=== PATIENT | male | born 1960 | race Caucasian/White ===

== ENCOUNTER 2023-09-05 22:40 | Observation (INO) | payer BC ==
[2023-09-05] MEDS ORDERED: LORazepam 2 MG/ML INJ IV STA (22:55)
[2023-09-05] MEDS ORDERED: SODIUM CHLORIDE 0.9% 1,000 ML IV STA (22:55)
--- NOTE | 2023-09-05 23:05 | ED ---
Seizure HPI - General Chief Complaint: Seizure Stated Complaint: Seizure Time Seen by Provider: 09/05/23 22:43 Source: patient, EMS, RN notes reviewed, old records reviewed Mode of arrival: EMS Limitations: no limitations - History of Present Illness Initial Comments: This is a 62-year-old male to the emergency department for evaluation. Patient's today for evaluation of seizure seizure activity at [facility] he now presents the emergency department for evaluation. Patient is a patient at [facility] for alcohol withdrawal MD Complaint: seizure, possible seizure, shaking -: hour(s) Description of Episode: loss of consciousness, tonic-clonic movement, post-event confusion -: second(s) Witnessed: yes - by bystander Trauma: Yes Seizure History: history of withdrawal seizures (6 is patient's first seizure after alcohol use) Place: home Possible Precipitating Event: alcohol withdrawal Associated Symptoms: denies other symptoms Treatments Prior to Arrival: none - Related Data Home Medications Medication Instructions Recorded Confirmed Acetaminophen Tab [Tylenol] 650 mg PO Q4H PRN 09/06/23 09/06/23 Calcium/Mag/Zinc/D3 1 tab PO TID PRN 09/06/23 09/06/23 Chlorpheniramine Maleate 4 mg PO Q4H PRN 09/06/23 09/06/23 [Chlor-Trimeton] Ibuprofen [Motrin Ib] 600 mg PO Q6H PRN 09/06/23 09/06/23 Loperamide HCl [Imodium A-D] 4 mg PO QID PRN 09/06/23 09/06/23 Nicotine 21Mg/24Hr Patch [Habitrol] 1 patch TRANSDERM DAILY 09/06/23 09/06/23 Thiamine [Vitamin B-1] 100 mg PO DAILY 09/06/23 09/06/23 carvediloL [Coreg] 12.5 mg PO BID 09/06/23 09/06/23 ondansetron HCL [Zofran] 8 mg PO Q6H PRN 09/06/23 09/06/23 Allergies Allergy/AdvReac Type Severity Reaction Status Date / Time No Known Allergies Allergy Verified 09/06/23 07:29 Review of Systems ROS Statement: Those systems with pertinent positive or pertinent negative responses have been documented in the HPI. ROS Other: All systems not noted in ROS Statement are negative. Past Medical History Past Medical History: Hypertension Past Surgical History: No Surgical Hx Reported Smoking Status: Current every day smoker Past Alcohol Use History: Abuse Past Drug Use History: Marijuana General Exam Limitations: no limitations General appearance: alert, in no apparent distress Head exam: Present: atraumatic, normocephalic, normal inspection Eye exam: Present: normal appearance, PERRL, EOMI. Absent: scleral icterus, conjunctival injection, periorbital swelling ENT exam: Present: normal exam, mucous membranes moist Neck exam: Present: normal inspection. Absent: tenderness, meningismus, lymphadenopathy Respiratory exam: Present: normal lung sounds bilaterally. Absent: respiratory distress, wheezes, rales, rhonchi, stridor Cardiovascular Exam: Present: regular rate, normal rhythm, normal heart sounds. Absent: systolic murmur, diastolic murmur, rubs, gallop, clicks GI/Abdominal exam: Present: soft, normal bowel sounds. Absent: distended, tenderness, guarding, rebound, rigid Extremities exam: Present: normal inspection, full ROM, normal capillary refill. Absent: tenderness, pedal edema, joint swelling, calf tenderness Back exam: Present: normal inspection Neurological exam: Present: alert, oriented X3, CN II-XII intact Psychiatric exam: Present: normal affect, normal mood Skin exam: Present: warm, dry, intact, normal color. Absent: rash Course Vital Signs 09/05/23 09/06/23 22:43 01:36 Temperature 98.8 F Pulse Rate 83 78 Respiratory 16 16 Rate Blood Pressure 136/82 121/81 O2 Sat by Pulse 98 95 Oximetry - Reevaluation(s) Reevaluation #1: 09/05/23 23:04 Medical records reviewed Reevaluation #2: No recurrent seizure-like activity here in the ER Reevaluation #3: Patient informed results questions answered Reevaluation #4: 09/05/23 23:04 Was pt. sent in by a medical professional or institution (, PA, ADOLESCENT SPECIALIST, urgent care, hospital, or detention...) When possible be specific @ -no Did you speak to anyone other than the patient for history (EMS, parent, family, police, friend...)? What history was obtained from this source @ -no Did you review nursing and triage notes (agree or disagree)? Why? @ -agree Are old charts reviewed (outside hosp., previous admission, EMS record, old EKG, old radiological studies, urgent care reports/EKG's, detention records)? Report findings @ -yes Differential Diagnosis (chest pain, altered mental status, abdominal pain women, abdominal pain men, vaginal bleeding, weakness, fever, dyspnea, syncope, headache, dizziness, GI bleed, back pain, seizure, CVA, palpatations, mental health, musculoskeletal)? @ -prior EKG interpreted by me (3pts min.). @ -yes X-rays interpreted by me (1pt min.). @ -no CT interpreted by me (1pt min.). @ -yes U/S interpreted by me (1pt. min.). @ -no What testing was considered but not performed or refused? (CT, X-rays, U/S, labs)? Why? @ -none What meds were considered but not given or refused? Why? @ -none Did you discuss the management of the patient with other professionals (professionals i.e. , PA, ADOLESCENT SPECIALIST, lab, RT, psych nurse, social media content manager, cook helper vegetable, teacher, juvenile officer, outsole caser)? Give summary @ -no Was smoking cessation discussed for >3mins.? @ -no Was critical care preformed (if so, how long)? @ -no Were there social determinants of health that impacted care today? How? (Homelessness, low income, unemployed, alcoholism, drug addiction, transportation, low edu. Level, literacy, decrease access to med. care, assisted, rehab)? @ -none Was there de-escalation of care discussed even if they declined (Discuss DNR or withdrawal of care, Hospice)? DNR status @ -no What co-morbidities impacted this encounter? (DM, HTN, Smoking, COPD, CAD, Cancer, CVA, ARF, Chemo, Hep., AIDS, mental health diagnosis, sleep apnea, morbid obesity)? @ -none Was patient admitted / discharged? Hospital course, mention meds given and route, prescriptions, significant lab abnormalities, going to OR and other pertinent info. @ - 62 male to the emergency with for evaluation today. Patient presents for alcohol withdrawal seizure alcohol withdrawal related seizure here in the emergency room. Patient symptoms has no recurrent seizure here in the ER will be admitted for seizure and persistent possibility of recurrent seizure Admit Undiagnosed new problem with uncertain prognosis? @ -no Drug Therapy requiring intensive monitoring for toxicity (Heparin, Nitro, Insulin, Cardizem)? @ -no Were any procedures done? @ -no Diagnosis/symptom? @ -Seizure, alcohol withdrawal, DTs Acute, or Chronic, or Acute on Chronic? @ -Acute Uncomplicated (without systemic symptoms) or Complicated (systemic symptoms)? @ -Complicated Side effects of treatment? @ -no Exacerbation, Progression, or Severe Exacerbation? @ -exacerbation Poses a threat to life or bodily function? How? (Chest pain, USA, ID, pneumonia, PE, COPD, DKA, ARF, appy, cholecystitis, CVA, Diverticulitis, Homicidal, Suicidal, threat to staff... and all critical care pts) @ -yes with severe alcohol withdrawal and status epilepticus Reevaluation #5: 09/05/23 23:04 Differential Seizure: Recurrent seizure disorder, febrile seizure, alcohol withdrawal, stimulants, meningitis, encephalitis, intercranial hemorrhage, intracranial tumor, stroke, eclampsia, thyrotoxicosis, hypocalcemia, hyponatremia, hypernatremia, hypomagnesemia, psychogenic, this is not meant to be an all-inclusive list. - Consultations Consultation #1: Spoke with admitting physicians who agree to admit this patient Medical Decision Making - Medical Decision Making 62 male to the emergency with for evaluation today. Patient presents for alcohol withdrawal seizure alcohol withdrawal related seizure here in the emergency room. Patient symptoms has no recurrent seizure here in the ER will be admitted for seizure and persistent possibility of recurrent seizure - Lab Data Result diagrams: 09/07/23 05:45 09/07/23 05:45 Lab Results 09/05/23 09/05/23 09/05/23 Range/Units 23:11 23:11 23:11 WBC 6.4 (3.8-10.6) k/uL RBC 3.62 L (4.30-5.90) m/uL Hgb 11.7 L (13.0-17.5) gm/dL Hct 34.7 L (39.0-53.0) % MCV 95.7 (80.0-100.0) fL MCH 32.3 (25.0-35.0) pg MCHC 33.7 (31.0-37.0) g/dL RDW 15.1 (11.5-15.5) % Plt Count 132 L (150-450) k/uL MPV 8.5 Neutrophils % (Manual) 70 % Lymphocytes % (Manual) 14 % Monocytes % (Manual) 15 % Eosinophils % (Manual) 1 % Neutrophils # (Manual) 4.48 (1.3-7.7) k/uL Lymphocytes # (Manual) 0.90 L (1.0-4.8) k/uL Monocytes # (Manual) 0.96 (0-1.0) k/uL Eosinophils # (Manual) 0.06 (0-0.7) k/uL Nucleated RBCs 0 (0-0) /100 WBC Manual Slide Review Performed RBC Morphology Normal Sodium 136 L (137-145) mmol/L Potassium 3.9 (3.5-5.1) mmol/L Chloride 100 (98-107) mmol/L Carbon Dioxide 28 (22-30) mmol/L Anion Gap 8 mmol/L BUN 21 H (9-20) mg/dL Creatinine 0.63 L (0.66-1.25) mg/dL Est GFR (CKD-EPI)AfAm >90 (>60 ml/min/1.73 sqM) Est GFR (CKD-EPI)NonAf >90 (>60 ml/min/1.73 sqM) Glucose 135 H (74-99) mg/dL Calcium 9.2 (8.4-10.2) mg/dL Phosphorus 2.6 (2.5-4.5) mg/dL Magnesium 1.6 (1.6-2.3) mg/dL Total Bilirubin 0.5 (0.2-1.3) mg/dL AST 326 H (17-59) U/L ALT 124 H (4-49) U/L Alkaline Phosphatase 62 (38-126) U/L Total Protein 6.5 (6.3-8.2) g/dL Albumin 3.9 (3.5-5.0) g/dL Vitamin B12 931.0 (200.0-944.0) pg/mL Salicylates <1.0 mg/dL Acetaminophen <10.0 ug/mL Serum Alcohol <10 mg/dL - EKG Data -: EKG Interpreted by Me (EKG is sinus W[place] 154 QRS 96 QTc 386) - Radiology Data Radiology results: report reviewed (CT brain is negative for acute disease), image reviewed Disposition Clinical Impression: New onset seizure, Alcohol abuse, Alcohol withdrawal Disposition: ADMITTED IP TO THIS [facility] Condition: Fair Is patient prescribed a controlled substance at d/c from ED?: No
[2023-09-05 23:27] LABS: HCT 34.7 % (39.0-53.0); HGB 11.7 gm/dL (13.0-17.5); MCH 32.3 pg (25.0-35.0); MCHC 33.7 g/dL (31.0-37.0); MCV 95.7 fL (80.0-100.0); Mean Platelet Volume 8.5; Platelet Count 132 k/uL (150-450); RBC 3.62 m/uL (4.30-5.90); RDW 15.1 % (11.5-15.5); WBC 6.4 k/uL (3.8-10.6)
[2023-09-05 23:37] LABS: ALT 124 U/L (4-49); AST 326 U/L (17-59); Acetaminophen <10.0 ug/mL; African American GFR (CKD) >90 (>60 ml/min/1.73 sqM); Albumin 3.9 g/dL (3.5-5.0); Alcohol <10 mg/dL; Alkaline Phosphatase 62 U/L (38-126); Anion Gap 8 mmol/L; Blood Urea Nitrogen 21 mg/dL (9-20); Calcium 9.2 mg/dL (8.4-10.2); Carbon Dioxide 28 mmol/L (22-30); Chloride 100 mmol/L (98-107); Glucose 135 mg/dL (74-99); Magnesium 1.6 mg/dL (1.6-2.3); Non-African American GFR(CKD) >90 (>60 ml/min/1.73 sqM); Phosphorus 2.6 mg/dL (2.5-4.5); Potassium 3.9 mmol/L (3.5-5.1); Salicylate <1.0 mg/dL; Sodium 136 mmol/L (137-145); Total Bilirubin 0.5 mg/dL (0.2-1.3); Total Protein 6.5 g/dL (6.3-8.2)
[2023-09-06 00:35] LABS: Eosinophils # (M) 0.06 k/uL (0-0.7); Monocytes # (M) 0.96 k/uL (0-1.0); Neutrophils # (M) 4.48 k/uL (1.3-7.7); Neutrophils % (M) 70 %; Nucleated Red Blood Cells 0 /100 WBC (0-0); RBC Morphology Normal; Total Cells Counted 100
[2023-09-06] MEDS ORDERED: NALOXONE 0.4 MG/ML 1 ML VIAL IV PRN (00:57)
[2023-09-06] MEDS ORDERED: ONDANSETRON 4 MG/2 ML VIAL IVP PRN (00:57)
[2023-09-06] MEDS ORDERED: LORazepam 2 MG/ML INJ IV PRN ×2 (00:58)
[2023-09-06] MEDS ORDERED: DEXTROSE 5%-0.45% NACL 1,000 ML IV SCH (01:00)
[2023-09-06] MEDS: SODIUM CHLORIDE 0.9% 1,000 ML IV SCH ×3 (01:34→16:17)
[2023-09-06] MEDS: LORazepam 2 MG/ML INJ IV PRN ×3 (03:57→18:48)
--- NOTE | 2023-09-06 06:06 | P.HPIM ---
History of Present Illness H&P Date: 09/06/23 Chief Complaint: seizure 62 year old male with alcohol abuse , hypertension he was sent to our facility from [facility] for alcohol withdrawal after having a witnessed seizure. his last alcohol drink was 6 days ago, today he was smoking outside with another resident when suddenly had a seizure episode, however, he denies any injuries as the other resident helped support his head and avoid any serious injuries. he denies any tongue biting , denies loss of bladder or bowel control. he denies any history of seizure. he is not sure what happened during the episode, but he was told that he had a seizure, he was disoriented on the ambulance ride to the hospital , but then became more awake when he arrived here. again he denies any history of head injury or seizures in the past. 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 and he is concerned regarding this episode of seizure. his last drink was >6 days ago , and currently denies any hallucinations or nervousness , or shakiness. he has been feeling well for the past couple days admits to smoking and alcohol abuse, occasional marijuana review of systems Pertinent positives as noted in HPI. All other systems were reviewed and are negative on exam Constitutional: No acute distress, conversant, pleasant Eyes: Anicteric sclerae, moist conjunctiva, Pupils equal round reactive to light ENMT: NC/AT Oropharynx clear, no erythema, or exudates Neck: Supple, no masses, or JVD No carotid bruits No thyromegaly Lungs: Clear to auscultation Clear to percussion Normal respiratory effort, no accessory muscle use Cardiovascular: Heart regular in rate and rhythm, No murmurs, gallops, or rubs No peripheral edema Abdominal: Soft Nontender, no guarding, rebound or rigidity Abdomen moving with respiration Normoactive bowel sounds No hepatomegaly, No splenomegaly No palpable mass No abdominal wall hernia noted Extremities: No digital cyanosis No clubbing Pedal pulses intact and symmetrical Radial pulses intact and symmetrical No calf tenderness Psychiatric: Alert and oriented to person, place and time Appropriate affect fair judgement Neuro Muscles Strength 5/5 in all 4 extremities Sensation to light touch grossly present throughout Cranial nerves II-XII grossly intact Lymphatics: no palpable cervical or supraclavicular lymph nodes Past Medical History Past Medical History: Hypertension Additional Past Medical History / Comment(s): ETOH abuse History of Any Multi-Drug Resistant Organisms: None Reported Past Surgical History: No Surgical Hx Reported Past Psychological History: No Psychological Hx Reported Smoking Status: Current every day smoker Past Alcohol Use History: Abuse Additional Past Alcohol Use History / Comment(s): pint a day Past Drug Use History: Marijuana Medications and Allergies Allergies Allergy/AdvReac Type Severity Reaction Status Date / Time No Known Allergies Allergy Verified 09/05/23 22:46 Physical Exam Vitals: Vital Signs Temp Pulse Pulse Resp BP BP Pulse Ox 09/06/23 02:00 98.0 F 62 16 128/74 98 09/06/23 01:36 78 16 121/81 95 09/05/23 22:43 98.8 F 83 16 136/82 98 Intake and Output 09/05/23 09/05/23 09/06/23 14:59 22:59 06:59 Other: Weight 55.338 kg 55.338 kg Results CBC & Chem 7: 09/05/23 23:11 09/05/23 23:11 Labs: Abnormal Lab Results - Last 24 Hours (Table) 09/05/23 09/05/23 Range/Units 23:11 23:11 RBC 3.62 L (4.30-5.90) m/uL Hgb 11.7 L (13.0-17.5) gm/dL Hct 34.7 L (39.0-53.0) % Plt Count 132 L (150-450) k/uL Lymphocytes # (Manual) 0.90 L (1.0-4.8) k/uL Sodium 136 L (137-145) mmol/L BUN 21 H (9-20) mg/dL Creatinine 0.63 L (0.66-1.25) mg/dL Glucose 135 H (74-99) mg/dL AST 326 H (17-59) U/L ALT 124 H (4-49) U/L Thrombosis Risk Factor Assmnt - Choose All That Apply Any of the Below Risk Factors Present?: Yes Other Risk Factors: Yes Each Risk Factor Represents 2 Points: Age 61-74 years Other congenital or acquired thrombophilia - If yes, enter type in comment: No Thrombosis Risk Factor Assessment Total Risk Factor Score: 2 Thrombosis Risk Factor Assessment Level: Low Risk Assessment and Plan Assessment: 62 year old male was sent to our facility from [place] after a witnessed seizure episode , his last alcohol drink was >6 days ago and he was there for rehab and withdrawal. I discussed the case with ED doc and I accepted the a dmission for new onset seizure , for neurology evaluation with anticipated length of stay < 2 midnights new onset seizure alcohol abuse monitor for alcohol withdrawal symptoms , last alcohol drink > 6 days ago benzo per [facility] seizure precautions neuro checks neurology consult thiamine daily po counseled to avoid driving , operating heavy machinary , or swimming unsupervised for at least 6 months per [place] state law blood work unremarkable Hgb 11.7 mild anemia , denies any bleeding WBC 6.4 bun 21 , cr 0.6 , Na 136, K 3.9 counseled to quit drinking transaminitis , suspected due to alcohol abuse monitor liver enzymes avoid hepatotoxic meds full code DVT PPX mechanical
--- NOTE | 2023-09-06 10:08 | CT ---
EXAMINATION TYPE: CT brain wo con DATE OF EXAM: 09/06/2023 COMPARISON: None HISTORY: New onset seizure and headache. CT DLP: 1216 mGycm Automated exposure control for dose reduction was used. FINDINGS: No midline shift or mass effect. Mild generalized degenerative change. Faint hypoattenuation in the w jr matter most typical remote ischemic white matter change. Orbits are symmetric. Calvarium intact. Nasal septal deviation noted. Intracranial atherosclerotic ch anges. IMPRESSION: MILD DEGENERATIVE CHANGE WITH NO ACUTE HEMORRHAGE OR MASS EFFECT.
[2023-09-06] MEDS: MULTIVITAMINS, THERA 1 EACH TAB PO SCH (10:34)
[2023-09-06] MEDS: FOLIC ACID 1 MG TAB PO SCH (10:34)
[2023-09-06 12:26] VITALS: BMI 18.5
--- NOTE | 2023-09-06 12:35 | P.CNNES ---
History of Present Illness Consult date: 09/06/23 Requesting physician: Terrance Aguilar Reason for Consult: seizure History of Present Illness: Patient is a 62-year-old male with history of alcoholism came to the hospital by ambulance yesterday at 10:40 PM for new onset seizure. EMS flow sheet not available in the chart. Patient states that he stopped drinking alcohol on , 08/29/2023. He stayed home on Saturday, Saturday, Saturday and on 09/02/2023 he checked himself at [facility] for alcohol rehab. Patient says that he could not receive Ativan, because his blood pressure was noted to be very low. He was doing well in rehab. Yesterday on , he was standing, smoking outside, when he passed out and had a seizure. Patient denies biting his tongue. He states that he was out in the rain, therefore does not know if he lost control of urine. Patient was brought to the hospital by ambulance. This is the first seizure ever in his life. Vital signs on arrival blood pressure 136/82, pulse rate 83 temperature 98.8. Blood test shows normal WBC, hemoglobin 11.7, platelets 132. Sodium 136 potassium 3.9, renal functions are normal, AST 326, ALT 124, blood alcohol level negative. CT head revealed mild degenerative change with no acute hemorrhage or mass effect. EKG with sinus rhythm. Patient has smoked one to one and half pack per day for 10 years. Patient states that he has been drinking 1 pint of Rum every day since last 4 months. Prior to that, he was sober for 5 months. Before that he used to drink 1 to 1- 1/2 pint of Rum every day for 10-15 years. He also smokes marijuana sometimes. Patient's home medications include Coreg, amlodipine, Zofran, thiamine, lisinopril. He lives with his sister. Review of Systems Constitutional: Denies chills, Denies fever Eyes: denies blurred vision, denies diplopia, denies pain Ears: deny: decreased hearing, earache Ears, nose, mouth and throat: Denies headache, Denies sore throat Cardiovascular: Denies chest pain, Denies shortness of breath Respiratory: Denies cough, Denies excessive sputum Gastrointestinal: Denies abdominal pain, Denies diarrhea, Denies nausea, Denies vomiting Genitourinary: Denies urinary frequency, Denies urinary hesitancy Musculoskeletal: Denies frequent falls, Denies neck pain Integumentary: Denies pruritus, Denies rash Neurological: Reports as per HPI Psychiatric: Denies anxiety, Denies depression Endocrine: Denies fatigue, Denies weight change Past Medical History Past Medical History: Hypertension Additional Past Medical History / Comment(s): ETOH abuse History of Any Multi-Drug Resistant Organisms: None Reported Past Surgical History: No Surgical Hx Reported Past Psychological History: No Psychological Hx Reported Smoking Status: Current every day smoker Past Alcohol Use History: Abuse Additional Past Alcohol Use History / Comment(s): pint a day Past Drug Use History: Marijuana Medications and Allergies Home Medications Medication Instructions Recorded Confirmed Type Acetaminophen Tab [Tylenol] 650 mg PO Q4H PRN 09/06/23 09/06/23 History Calcium/Mag/Zinc/D3 1 tab PO TID PRN 09/06/23 09/06/23 History Chlorpheniramine Maleate 4 mg PO Q4H PRN 09/06/23 09/06/23 History [Chlor-Trimeton] Ibuprofen [Motrin Ib] 600 mg PO Q6H PRN 09/06/23 09/06/23 History Loperamide HCl [Imodium A-D] 4 mg PO QID PRN 09/06/23 09/06/23 History Nicotine 21Mg/24Hr Patch [Habitrol] 1 patch TRANSDERM DAILY 09/06/23 09/06/23 History Thiamine [Vitamin B-1] 100 mg PO DAILY 09/06/23 09/06/23 History amLODIPine 10 mg PO DAILY 09/06/23 09/06/23 History carvediloL [Coreg] 12.5 mg PO BID 09/06/23 09/06/23 History lisinopriL [Zestril] 5 mg PO DAILY 09/06/23 09/06/23 History ondansetron HCL [Zofran] 8 mg PO Q6H PRN 09/06/23 09/06/23 History Allergies Allergy/AdvReac Type Severity Reaction Status Date / Time No Known Allergies Allergy Verified 09/06/23 07:29 Physical Examination - Vital Signs Vital Signs: Vital Signs Temp Pulse Pulse Resp BP BP Pulse Ox 09/06/23 09:00 78 16 09/06/23 07:55 99.0 F 70 18 133/76 96 09/06/23 02:00 98.0 F 62 16 128/74 98 09/06/23 01:36 78 16 121/81 95 09/05/23 22:43 98.8 F 83 16 136/82 98 Intake and Output 09/05/23 09/06/23 09/06/23 22:59 06:59 14:59 Intake Total 960 Output Total 600 825 Balance 360 -825 Intake: Intake, IV Titration 560 Amount Dextrose 5%-0.45% NaCl 1, 60 000 ml @ 20 mls/hr IV . Q24H P[facility]A Rx#:[id number] Sodium Chloride 0.9% 1, 500 000 ml @ 130 mls/hr IV . Q7H42M [facility]A Rx#:[id number] Oral 400 Output: Urine 600 825 Other: Voiding Method Urinal # Voids 1 Weight 55.338 kg 55.338 kg Patient is a late middle aged male, in no acute distress. Patient is alert awake oriented to time place and person. Speech and language functions are normal. Patient can name and repeat very well. No aphasia or dysarthria. Attention, concentration and fund of knowledge is adequate. On cranial nerve examination, pupils are equal, round and reacting to light, visual wood are full on confrontation, with no neglect on double simultaneous stimulation. Extraocular muscles are intact with no nystagmus. Face is symmetric, tongue protrudes to the midline. Palatal elevation and sensation normal, hearing and shoulder shrug normal, facial sensation normal. On muscle strength testing, there is no pronator drift and the strength is nor mal in arms and legs distally and proximally. Deep tendon reflexes are symmetric 1+ all over and plantars probable upgoing bilaterally. Sensory to touch is equal with no neglect on double simultaneous stimulation. Cerebellar function showed no ataxia for [id number] testing. No dysdiadochokinesia. No ataxia for [id number] testing on either side. Tone and bulk of muscles normal. Gait deferred.. On general examination, there is no carotid bruit or murmur, S1-S2 audible. Chest is clear on consultation. Abdomen is soft nontender. No organomegaly, bowel sounds present. Peripheral pulses are present. No edema. Results - Laboratory Findings CBC and BMP: 09/07/23 05:45 09/07/23 05:45 Abnormal Lab Findings: Abnormal Labs 09/05/23 09/05/23 23:11 23:11 RBC 3.62 L Hgb 11.7 L Hct 34.7 L Plt Count 132 L Lymphocytes # (Manual) 0.90 L Sodium 136 L BUN 21 H Creatinine 0.63 L Glucose 135 H AST 326 H ALT 124 H Assessment and Plan Assessment: * New onset seizure, probable provoked from alcohol withdrawal. Patient says that he has been off alcohol since last 8 days before he had a seizure. * History of alcoholism * Marijuana use Plan: * Patient's seizure occurred 8 days after stopping alcohol, which is somewhat unusual. * Check EEG to rule out any epileptiform activity. * Patient informed of [place] state law of no driving unless seizure free for 6 months, climbing ladders, operate dangerous machinery or unsupervised swimming. * Watch for alcohol withdrawal. * Urine drug screen * Thiamine, folate, multivitamins. Check B12 checked, normal 931. * Patient will be cleared neurologically, if the EEG comes back normal. Thank you for the consult. Addendum: EEG is normal during wakefulness, drowsiness and stage II sleep. No epileptifo rm activity was seen. No indication for AED. Neurologically clear for discharge when stable from alcohol withdrawal standpoint.
[2023-09-06] MEDS ORDERED: NICOTINE GUM (POLACRILEX) 2 MG GUM BUCCAL PRN (15:20)
--- NOTE | 2023-09-06 15:20 | P.PN ---
Subjective Progress Note Date: 09/06/23 (delayed charting seen at 0945) Patient is a 62-year-old male with alcohol dependency, hypertension, and tobacco dependency who presented to the ER from [place] after having a witnessed seizure. On arrival to the ER his vital signs are within normal limits. Laboratory analysis was remarkable for hemoglobin 11.7, platelets 132, sodium 136, BUN 21, creatinine 0.63, AST 326, ALT 124 Patient seen and examined at bedside. He denies any additional seizure-like activity, he believes that his seizure was due to low blood pressures. We discussed that it was more likely due to alcohol withdrawal. We discussed that he should not drive or operate heavy machinery for the next 6 months based on [place] law. He denies any chest pain, shortness of breath, numbness, tingling, or weakness. Vital signs reviewed General: nontoxic, no distress, appears at stated age Cardiovascular: S1S2 reg, no murmur, positive posterior tibial pulse bilateral, Lungs: CTA bilateral, no rhonchi, no rales , no accessory muscle use Abdominal: soft, nontender to palpation, no guarding, no appreciable organomegaly Ext: no gross muscle atrophy, no edema b/l lower extremities, no contractures Neuro: CN II-XI grossly intact, no focal neuro deficits Psych: Alert, oriented, appropriate affect Assessment/Plan: New-onset seizure secondary to alcohol withdrawal Prerenal azotemia secondary to dehydration -Check head CT ordered and reviewed as below -Neurology consult reviewed: Await EEG, check B12. -Decrease IV fluids to 50 mL per hour Alcohol withdrawal in a patient with known alcohol dependency -CIWA with dosing of Ativan based on CIWA score, folic acid 1 mg daily, thiamine 100 mg daily Thrombocytopenia Transaminitis -Suspect over secondary to alcohol use -Repeat CMP in a.m. -Repeat CBC -Outpatient follow-up Hypertension -Hold lisinopril, Coreg, and amlodipine -Continue to follow blood pressures Nicotine dependency - nicotine gum 2 mg q2 hours Imaging: CT head: Mild degenerative changes with no acute hemorrhage or mass effect Data Review: No new labs DVT prophylaxis: SCDs Anticipated discharge date: in AM Anticipated discharge place: return to [place] This dictation was prepared using [employer] voice recognition software. Though every attempt is made to correct errors during dictation some may still exist. Objective - Vital Signs Vital signs: Vital Signs Temp 99.0 F 10/06/23 07:55 Pulse 78 09/06/23 09:00 Resp 16 09/06/23 09:00 BP 133/76 09/06/23 07:55 Pulse Ox 96 09/06/23 07:55 FiO2 Intake & Output 09/05/23 09/06/23 09/06/23 18:59 06:59 18:59 Intake Total 960 Output Total 600 825 Balance 360 -825 Weight 55.338 kg 55.338 kg Intake: Intake, IV Titration 560 Amount Dextrose 5%-0.45% NaCl 1, 60 000 ml @ 20 mls/hr IV . Q24H [facility] Rx#:[id number] Sodium Chloride 0.9% 1, 500 000 ml @ 130 mls/hr IV . Q7H42M [facility] Rx#:[id number] Oral 400 Output: Urine 600 825 Other: Voiding Method Urinal # Voids 1 - Labs CBC & Chem 7: 09/05/23 23:11 09/05/23 23:11 Labs: Abnormal Lab Results - Last 24 Hours (Table) 09/05/23 09/05/23 Range/Units 23:11 23:11 RBC 3.62 L (4.30-5.90) m/uL Hgb 11.7 L (13.0-17.5) gm/dL Hct 34.7 L (39.0-53.0) % Plt Count 132 L (150-450) k/uL Lymphocytes # (Manual) 0.90 L (1.0-4.8) k/uL Sodium 136 L (137-145) mmol/L BUN 21 H (9-20) mg/dL Creatinine 0.63 L (0.66-1.25) mg/dL Glucose 135 H (74-99) mg/dL AST 326 H (17-59) U/L ALT 124 H (4-49) U/L
[2023-09-06] MEDS: MAGNESIUM SULFATE-D5W PMX 1 GM in DEXTROSE/WATER 1 100ML.BAG IVPB SCH ×2 (16:17→17:57)
[2023-09-06] MEDS: NICOTINE 21MG/24HR PATCH TRANSDERM SCH (18:06)
--- NOTE | 2023-09-06 23:20 | EEG ---
ELECTROENCEPHALOGRAM REPORT PREAMBLE: This is a 62-year-old male with new onset seizure. The patient has history of alcoholism, had stopped drinking alcohol about 8 days prior to the seizure. CURRENT MEDICATIONS: Folic acid, Ativan, multivitamins and thiamine. EEG FINDINGS: This is a 21-channel digital EEG recorded with video component, utilizing 10/20 international system with referential and bipolar montages. Background consists of well developed, well regulated, moderate voltage activity in 9 hertz alpha. Background is posterior dominant and reactive to eye opening and closing. Photic driving response was not seen. Drowsiness was seen with appearance of bilaterally symmetric theta frequency rhythm. Stage 2 sleep was attained with presence of vertex waves and sleep spindles. During later part of study, some facial myoclonic twitches were noted, but not associated with any epileptiform activity. No focal or generalized epileptiform activity was seen. EKG channel showed no obvious arrhythmia. IMPRESSION: This is a normal EEG during wakefulness, drowsiness, and stage 2 sleep. No focal, lateralized or epileptiform activity was seen. MMODL / IJN: [id number] /
[2023-09-07] MEDS: LORazepam 2 MG/ML INJ IV PRN (00:20)
[2023-09-07 01:58] LABS: Urine Alcohol Negative (Negative); Urine Barbiturate Negative (Negative); Urine Cocaine Negative (Negative); Urine Methadone Negative (Negative); Urine Opiates Negative (Negative); Urine Phencyclidine Negative (Negative)
[2023-09-07 06:29] LABS: HCT 38.4 % (39.0-53.0); HGB 12.5 gm/dL (13.0-17.5); MCH 32.5 pg (25.0-35.0); MCHC 32.6 g/dL (31.0-37.0); MCV 99.5 fL (80.0-100.0); Macrocytosis Slight; Mean Platelet Volume 7.6; Platelet Count 182 k/uL (150-450); RBC 3.86 m/uL (4.30-5.90); RDW 14.8 % (11.5-15.5); WBC 4.9 k/uL (3.8-10.6)
[2023-09-07 06:39] LABS: ALT 156 U/L (4-49); AST 362 U/L (17-59); African American GFR (CKD) >90 (>60 ml/min/1.73 sqM); Albumin 3.4 g/dL (3.5-5.0); Albumin/Globulin Ratio 1.3; Alkaline Phosphatase 60 U/L (38-126); Anion Gap 5 mmol/L; Blood Urea Nitrogen 9 mg/dL (9-20); Calcium 8.6 mg/dL (8.4-10.2); Carbon Dioxide 29 mmol/L (22-30); Chloride 104 mmol/L (98-107); Globulin 2.7 g/dL; Glucose 93 mg/dL (74-99); Magnesium 1.9 mg/dL (1.6-2.3); Non-African American GFR(CKD) >90 (>60 ml/min/1.73 sqM); Sodium 138 mmol/L (137-145); Total Bilirubin 0.5 mg/dL (0.2-1.3); Total Protein 6.1 g/dL (6.3-8.2)
[2023-09-07] MEDS: MULTIVITAMINS, THERA 1 EACH TAB PO SCH (08:44)
[2023-09-07] MEDS: FOLIC ACID 1 MG TAB PO SCH (08:44)
[2023-09-07] MEDS: NICOTINE 21MG/24HR PATCH TRANSDERM SCH (08:44)
[2023-09-07] MEDS ORDERED: THIAMINE 100 MG TAB PO SCH (09:00)
--- NOTE | 2023-09-07 11:26 | P.DS ---
Providers Date of admission: 09/06/23 00:57 Expected date of discharge: 09/07/23 Attending physician: Terrance Aguilar MD Consults: 09/06/23 05:34 Consult Physician Routine Consulting Provider: Geovanni Chandler Consult Reason/Comments: seizure Do you want consulting provider notified?: Yes, Notify in am Primary care physician: Physician Nonstaff Hospital Course: Discharge Diagnosis: Alcohol withdrawal related seizure Prerenal azotemia Alcohol withdrawal in a patient with known alcohol dependency Thrombocytopenia Transaminitis, alcohol-related Hypertension Nicotine dependency Hospital Course: Patient is a 62-year-old male with alcohol dependency, hypertension, and tobacco dependency who presented to the ER from [place] after having a witnessed seizure. On arrival to the ER his vital signs are within normal limits. Laboratory analysis was remarkable for hemoglobin 11.7, platelets 132, sodium 136, BUN 21, creatinine 0.63, AST 326, ALT 124. He was asked for closer monitoring. He remained seizure free. He was seen by neurology. He underwent head CT which showed no acute process. He underwent an EEG which showed no signs of epileptiform activity. Repeat liver enzymes were stable and suspected to be related to alcohol use. He was doing well and was determined stable for discharge back to [facility]. His blood pressure medications were held during his hospital stay as his blood pressure was low normal on arrival. He is asked to follow up with his primary care physician after he completes rehab. His Coreg was resumed. His Norvasc and lisinopril were discontinued due to blood pressures. Follow-up: Patient was given extensive instructions that he cannot drive or operate heavy machinery for the next 6 months due to his seizure. He was asked to follow-up with his primary care physician upon discharge from [facility]. Patient seen and examined at bedside. He is very upset about the seizure. He states he is feeling fine this morning and is comfortable with discharge home. Vital signs reviewed and stable. General: nontoxic, no distress, appears at stated age Cardiovascular: S1S2 reg, no murmur, positive posterior tibial pulse bilateral, Lungs: CTA bilateral, no rhonchi, no rales , no accessory muscle use Abdominal: soft, nontender to palpation, no guarding, no appreciable organomegaly Ext: no gross muscle atrophy, no edema b/l lower extremities, no contractures Neuro: CN II-XI grossly intact, no focal neuro deficits Psych: Alert, oriented, appropriate affect A total of 32 minutes of time were spent preparing this complex discharge summary. Patient was discharged on 09/07/23. This dictation was prepared using [employer] voice recognition software. Th ough every attempt is made to correct errors during dictation some may still exist. Patient Condition at Discharge: Fair Plan - Discharge Summary Discharge Rx Participant: No New Discharge Prescriptions: Continue Ibuprofen [Motrin Ib] 600 mg PO Q6H PRN PRN Reason: Pain Loperamide HCl [Imodium A-D] 4 mg PO QID PRN PRN Reason: Diarrhea Chlorpheniramine Maleate [Chlor-Trimeton] 4 mg PO Q4H PRN PRN Reason: Allergy Symptoms Calcium/Mag/Zinc/D3 1 tab PO TID PRN PRN Reason: cramps carvediloL [Coreg] 12.5 mg PO BID ondansetron HCL [Zofran] 8 mg PO Q6H PRN PRN Reason: Nausea Nicotine 21Mg/24Hr Patch [Habitrol] 1 patch TRANSDERM DAILY Thiamine [Vitamin B-1] 100 mg PO DAILY Acetaminophen Tab [Tylenol] 650 mg PO Q4H PRN PRN Reason: Pain Discontinued amLODIPine 10 mg PO DAILY lisinopriL [Zestril] 5 mg PO DAILY Discharge Medication List Acetaminophen Tab [Tylenol] 650 mg PO Q4H PRN 09/06/23 [History] Calcium/Mag/Zinc/D3 1 tab PO TID PRN 09/06/23 [History] Chlorpheniramine Maleate [Chlor-Trimeton] 4 mg PO Q4H PRN 09/06/23 [History] Ibuprofen [Motrin Ib] 600 mg PO Q6H PRN 09/06/23 [History] Loperamide HCl [Imodium A-D] 4 mg PO QID PRN 09/06/23 [History] Nicotine 21Mg/24Hr Patch [Habitrol] 1 patch TRANSDERM DAILY 09/06/23 [History] Thiamine [Vitamin B-1] 100 mg PO DAILY 09/06/23 [History] carvediloL [Coreg] 12.5 mg PO BID 09/06/23 [History] ondansetron HCL [Zofran] 8 mg PO Q6H PRN 09/06/23 [History] Follow up Appointment(s)/Referral(s): [facility] [Outside] - As Needed None,Stated [REFERRING] - 1-2 days Patient Instructions/Handouts: Seizure/Epilepsy Discharge Instructions & Follow-Up Activity/Diet/Wound Care/Special Instructions: Activity: As tolerated Diet: Regular Special Instructions: No driving for 6 months per [place] Law. No operating heavy machinery. Shower do not bath. Do not use ladders or go swimming unattended. Abstain from alcohol. Please make an appointment with your primary care provider after you complete rehab at [facility]. Discharge Disposition: HOME SELF-CARE
[2023-09-07] MEDS: SODIUM CHLORIDE 0.9% 1,000 ML IV SCH (11:46)
[2023-09-07 12:58] VITALS: BP 149/79; PULSE 82; RESP 18; TEMP 98.5
== END 2023-09-07 14:07 | disposition home or self-care (01) ==
LOC: EC 22:40 → 5NMEDONC 09-06 00:57
PROVIDERS: ADMIT Internal Medicine; ATTEND Internal Medicine
DX: F10.239 Alcohol dependence with withdrawal, unspecified (principal); R56.9 Unspecified convulsions; E86.0 Dehydration; I10 Essential (primary) hypertension; D64.9 Anemia, unspecified; R74.01 Elevation of levels of liver transaminase levels; D69.6 Thrombocytopenia, unspecified; R79.89 Other specified abnormal findings of blood chemistry; F17.210 Nicotine dependence, cigarettes, uncomplicated; Z79.899 Other long term (current) drug therapy; Y90.0 Blood alcohol level of less than 20 mg/100 ml
CPT/HCPCS: 96376 ×2; 96365; 96366; 96361 ×2; 96375; 99285; 36415; 95819; 93005; 80053 ×2; 82607; 83735 ×2; 84100; 85025; 85027; 80306; 80143; 80320; 80179; 70450; G0378 ×2; S4990 ×2; J2060 ×3; J3475